=== PATIENT | male | born 1950 | race Caucasian/White ===

== ENCOUNTER → 2023-05-16 | Outpatient (CLI) | payer MEDICARE ==
[~2023-05-16] MED LIST: ALDACTONE25 M1 PO; AMARYL4 MG PO; AMLODIPINE BESY10 MG PO; FUROSEMIDE40 MG PO; LIPITOR40 MG PO; METOPROLOL SUC100 M1 PO; NEURONTIN100 MG PO; TOPROL XL50 M1 PO; ZESTRIL2.5 MG PO
== END | disposition home or self-care (01) ==
LOC: CT 05-15 09:00
PROVIDERS: ATTEND Internal Medicine Nephrology
DX: K44.9 Diaphragmatic hernia without obstruction or gangrene (principal); N28.1 Cyst of kidney, acquired; K82.8 Other specified diseases of gallbladder

== ENCOUNTER 2023-06-04 02:06 | Emergency (ER) | payer MEDICARE ==
[~2023-06-04] VITALS: Ht 180.3 cm; Wt 98.9 kg
[~2023-06-04 02:06] MED LIST changes: -AMARYL4 MG PO; +ASPIRIN ADULT L81 M2 PO; +FLOMAX0.4 MG PO; +GLIMEPIRIDE2 MG PO; +GLIMEPIRIDE4 M1 PO; +HYZAAR 50-12.51 EACH PO; +LASIX40 MG PO; +RIVASTIGMINE TAR3 M1 PO
[2023-06-04] MEDS ORDERED: NOREPINEPHRINE BITARTRATE/D5W 250 ML IV SCH ×2 (02:15→06:45)
[2023-06-04 02:37] LABS: HEMATOCRIT 25.1 % (42.0-52.0); MEAN CELL VOLUME 71.5 fl (80.0-94.0); MEAN CORPUSCULAR HGB 19.7 pg (27.0-31.0); MEAN CORPUSCULAR HGB CONC 27.5 g/dl (33.0-37.0); MEAN PLATELET VOLUME 10.4 fl (9.6-12.3); PLATELET COUNT AUTOMATED 224 10*3/uL (130-400); RED BLOOD COUNT 3.51 10*6/uL (4.50-5.90); RED CELL DISTRI WIDTH 21.3 % (0-14.5); WHITE BLOOD COUNT 13.5 10*3/uL (4.8-10.8)
[2023-06-04 02:43] LABS: ABG BASE EXCESS 2.5 mmol/L (-2.0-2.0); ARTERIAL BLOOD GAS PH 7.418 (7.35-7.45)
[2023-06-04 02:46] LABS: MANUAL DIFF REFLEX YES
[2023-06-04] MEDS ORDERED: Pantoprazole Sodium 40 MG in SODIUM CHLORIDE 0.9% 50 ML IV SCH ×2 (02:50→10:00)
[2023-06-04 02:51] LABS: ACT PARTIAL THROMBO TIME 27.9 SECONDS (20.0-32.1)
[2023-06-04 02:58] LABS: POTASSIUM 4.6 mmol/L (3.4-5.1); TOTAL PROTEIN 6.4 gm/dL (6.0-8.0)
[2023-06-04] MEDS ORDERED: SODIUM CHLORIDE 0.9% 1,000 ML IV ONE ×2 (03:10→03:16)
[2023-06-04] MEDS ORDERED: SODIUM CHLORIDE 0.9% 1,000 ML IV SCH (03:10)
[2023-06-04 03:11] LABS: BASOPHILS 1 % (0-1); MICROCYTOSIS SLIGHT; OVALOCYTES FEW; PLATELET SUFFICIENCY NORMAL (NORMAL); TOTAL CELLS COUNTED 100 #CELLS
[2023-06-04] MEDS ORDERED: Vancomycin Hydrochloride 250 ML IV ONE (03:15)
[2023-06-04] MEDS ORDERED: Doxycycline Hyclate 100 MG in SODIUM CHLORIDE 0.9% 250 ML IV ONE (03:15)
[2023-06-04] MEDS ORDERED: Piperacillin Sodium/Tazobact 50 ML IV ONE (03:15)
[2023-06-04] MEDS ORDERED: Pantoprazole Sodium 40 MG IV ONE (04:45)
[2023-06-04] MEDS ORDERED: NOREPINEPHRINE BITARTRATE/D5W 250 ML IV ONE (06:52)
[2023-06-04 09:23] LABS: MEAN CELL VOLUME 70.5 fl (80.0-94.0); MEAN CORPUSCULAR HGB 19.7 pg (27.0-31.0); MEAN CORPUSCULAR HGB CONC 27.9 g/dl (33.0-37.0); MEAN PLATELET VOLUME 9.2 fl (9.6-12.3); PLATELET COUNT AUTOMATED 186 10*3/uL (130-400); RED BLOOD COUNT 2.95 10*6/uL (4.50-5.90); RED CELL DISTRI WIDTH 21.2 % (0-14.5); WHITE BLOOD COUNT 13.3 10*3/uL (4.8-10.8)
[2023-06-04 09:26] LABS: MANUAL DIFF REFLEX YES
[2023-06-04 09:28] LABS: HEMATOCRIT 20.8 % (42.0-52.0)
[2023-06-04] MEDS ORDERED: Doxycycline Hyclate 100 MG VIAL IV ONE (09:49)
[2023-06-04] MEDS ORDERED: SODIUM CHLORIDE 0.9% 250 ML BAG IV ONE (09:49)
[2023-06-04] MEDS ORDERED: SODIUM CHLORIDE 0.9% 50 ML BAG IV ONE (09:49)
[2023-06-04 09:52] LABS: BASOPHILS 1 % (0-1); PLATELET SUFFICIENCY NORMAL (NORMAL); POLYCHROMASIA SLIGHT; TOTAL CELLS COUNTED 100 #CELLS
[2023-06-04 09:53] LABS: OVALOCYTES FEW
[2023-06-04 09:54] LABS: MICROCYTOSIS SLIGHT
[2023-06-04 09:55] LABS: ACANTHOCYTES FEW
[2023-06-04] MEDS ORDERED: SODIUM CHLORIDE 0.9% 500 ML IV ONE (13:36)
[2023-06-04 14:35] VITALS: BP 96/38
[2023-06-04 15:15] VITALS: BP 94/37
[2023-06-04 17:00] LABS: HEMATOCRIT 21.2 % (42.0-52.0); MEAN CELL VOLUME 71.1 fl (80.0-94.0); MEAN CORPUSCULAR HGB 19.8 pg (27.0-31.0); MEAN CORPUSCULAR HGB CONC 27.8 g/dl (33.0-37.0); MEAN PLATELET VOLUME 9.8 fl (9.6-12.3); PLATELET COUNT AUTOMATED 189 10*3/uL (130-400); RED BLOOD COUNT 2.98 10*6/uL (4.50-5.90); RED CELL DISTRI WIDTH 21.5 % (0-14.5); WHITE BLOOD COUNT 11.7 10*3/uL (4.8-10.8)
[2023-06-04 17:02] LABS: MANUAL DIFF REFLEX YES
[2023-06-04 17:20] LABS: TOTAL PROTEIN 5.6 gm/dL (6.0-8.0)
[2023-06-04 18:22] LABS: OVALOCYTES FEW; PLATELET SUFFICIENCY NORMAL (NORMAL); TOTAL CELLS COUNTED 100 #CELLS
[2023-06-04 18:23] LABS: SCHISTOCYTES FEW
== END 2023-06-04 17:58 | disposition short-term general hospital (02) ==
LOC: ED 02:06
PROVIDERS: Internal Medicine; Student in an Organized Health Care Education/Training Program
DX: A41.9 Sepsis, unspecified organism (principal); R65.21 Severe sepsis with septic shock; D64.9 Anemia, unspecified; I95.9 Hypotension, unspecified; K92.2 Gastrointestinal hemorrhage, unspecified; R91.8 Other nonspecific abnormal finding of lung field; Z79.899 Other long term (current) drug therapy; Z79.82 Long term (current) use of aspirin